=== PATIENT | female | born 1965 | race Caucasian/White ===

== ENCOUNTER 2018-10-26 17:41 | Emergency (ER) | payer OTHER ==
[~2018-10-26] VITALS: Ht 157.5 cm; Wt 63.5 kg
[~2018-10-26 17:41] MED LIST: ENALAPRIL MALE2.5 MG; FARXIGA5 MG; GLIMEPIRIDE2 MG; GLUMETZA1000 MG
[2018-10-26] MEDS ORDERED: SIMVASTATIN40 MG PO (17:58)
[2018-10-26] MEDS ORDERED: LISINOPRIL10 MG PO (17:58)
== END 2018-10-26 21:17 | disposition home or self-care (01) ==
LOC: ER 17:41
DX: S99.821A Other specified injuries of right foot, initial encounter (principal); X58.XXXA Exposure to other specified factors, initial encounter; Y93.89 Activity, other specified; Y92.89 Other specified places as the place of occurrence of the external cause; Y99.8 Other external cause status

== ENCOUNTER 2020-01-11 10:59 | Emergency (ER) | payer OTHER ==
[~2020-01-11] VITALS: Ht 157.5 cm; Wt 62.6 kg
[~2020-01-11 10:59] MED LIST changes: +LISINOPRIL10 MG PO; +SIMVASTATIN40 MG PO
== END 2020-01-11 14:46 | disposition home or self-care (01) ==
LOC: ER 10:59
DX: M94.0 Chondrocostal junction syndrome [Tietze] (principal)

== ENCOUNTER 2022-10-30 10:23 | Emergency (ER) | payer OTHER ==
[~2022-10-30] VITALS: Ht 157.5 cm; Wt 61.2 kg
[~2022-10-30 10:23] MED LIST changes: +HUMULIN 70100 UNIT/2 SQ; +LANTUS SOL100 UNIT/1 SQ
== END 2022-10-30 13:20 | disposition home or self-care (01) ==
LOC: ER 10:23
DX: J03.90 Acute tonsillitis, unspecified (principal)

== ENCOUNTER 2024-01-16 20:47 | Emergency (ER) | payer OTHER ==
[~2024-01-16] VITALS: Ht 157.5 cm; Wt 61.2 kg
[2024-01-16] MEDS ORDERED: KETOROLAC TROMETHAMINE 30 MG VIAL IM STA (21:34)
== END 2024-01-16 22:39 | disposition home or self-care (01) ==
LOC: ER 20:47
DX: S52.514A Nondisplaced fracture of right radial styloid process, initial encounter for closed fracture (principal); W19.XXXA Unspecified fall, initial encounter; Y93.89 Activity, other specified; Y92.89 Other specified places as the place of occurrence of the external cause; Y99.9 Unspecified external cause status